=== PATIENT | female | born 1940 | race Caucasian/White ===

== ENCOUNTER 2017-09-20 08:21 | Day surgery (SDC) | payer MEDICARE, OTHER ==
[~2017-09-20 08:21] MED LIST: ACYC400 PO; ANTIBIOTIC; CEPH500 PO; ENOX40I SC; NEUPOGEN300 MCG/0. SC; [UNRECOGNIZED DRUG - CODE] SC
[2017-09-20] MEDS ORDERED: ALLO100 PO (13:32)
== END 2017-09-20 17:38 | disposition home or self-care (01) ==
LOC: ATC 08:21
DX: C91.00 Acute lymphoblastic leukemia not having achieved remission (principal)
CPT/HCPCS: 36415; 36430; 86850; 86900; 86901; 86923; J7050; P9040

== ENCOUNTER → 2017-09-28 | Outpatient (CLI) | payer MEDICARE, OTHER ==
[~2017-09-28] MED LIST changes: +ALLO100 PO; +LEVFLO500 PO
[2017-09-28 14:38] LABS: Hematocrit 26.1 % (33.0-51.0); Hemoglobin 8.6 g/dL (11.5-16.0); Mean Corpuscular HGB 31.2 pg (26.0-34.0); Mean Corpuscular Volume 95 fL (80-100); RDW Coefficient Variation 19.4 % (11.7-14.2); RDW Standard Deviation 59.9 fL (35.1-46.3); Red Blood Cell Count 2.76 M/mm3 (3.80-5.20)
[2017-09-28 14:41] LABS: White Blood Cell Count 90.13 K/mm3 (4.00-11.30)
[2017-09-28 14:42] LABS: Platelet Count 14 K/mm3 (150-400)
[2017-09-28 17:28] LABS: BASOPHILS PERCENT MAN 0 % (0-2); BLASTS PERCENT MAN 35 % (0-0); EOSINOPHILS PERCENT MAN 0 % (0-6); LYMPHOCYTES ABSOLUTE MAN 8.11 K/mm3 (0.84-5.20); LYMPHOCYTES PERCENT MAN 9 % (21-46); MONOCYTES PERCENT MAN 4 % (4-13); SEG NEUTROPHILS PERCENT MAN 3 % (41-73); TOTAL CELLS COUNTED 100
[2017-09-28 17:29] LABS: OTHER CELL PERCENT MAN 49 % (0-0)
== END ==
LOC: LAB 14:21
PROVIDERS: Internal Medicine Hematology & Oncology
DX: Z13.0 Encounter for screening for diseases of the blood and blood-forming organs and certain disorders involving the immune mechanism (principal)
CPT/HCPCS: 85025

== ENCOUNTER 2017-09-30 16:14 | Emergency (ER) | payer MEDICARE, OTHER ==
[~2017-09-30] VITALS: Ht 167.6 cm; Wt 59.0 kg
[~2017-09-30 16:14] MED LIST changes: -LEVFLO500 PO
[2017-09-30 16:59] LABS: BASOPHILS ABSOLUTE AUTO 0.63 K/mm3 (0.00-0.23); BASOPHILS PERCENT AUTO 1 % (0-2); EOSINOPHILS ABSOLUTE AUTO 0.02 K/mm3 (0.00-0.68); EOSINOPHILS PERCENT AUTO 0 % (0-6); Hematocrit 25.2 % (33.0-51.0); Hemoglobin 8.4 g/dL (11.5-16.0); Mean Corpuscular HGB Conc 33.3 g/dL (31.5-36.5); Mean Corpuscular Volume 93 fL (80-100); NRBC ABSOLUTE 0.15 K/mm3 (0.00-0.02); NRBC Auto 0.1 /100 WBC (0.0-0.2); RDW Coefficient Variation 19.5 % (11.7-14.2); Red Blood Cell Count 2.71 M/mm3 (3.80-5.20)
[2017-09-30 17:05] LABS: Platelet Count 14 K/mm3 (150-400); White Blood Cell Count 117.22 K/mm3 (4.00-11.30)
[2017-09-30 17:19] LABS: Alanine Aminotransfer (ALT/SGP 15 U/L (12-78); Albumin, Blood 3.1 g/dL (3.4-5.0); Albumin/Globulin Ratio 0.9 (0.8-1.8); Alk Phos 70 U/L (50-136); Anion Gap 8 mmol/L (6-16); Aspartate Aminotrans (AST/SGOT 26 U/L (12-37); Bilirubin, Total 0.4 mg/dL (0.1-1.0); Blood Urea Nitrogen 16 mg/dL (8-24); Bun/Creatinine Ratio 25.2 (12.0-20.0); CO2, Blood 25 mmol/L (21-32); Calcium, Blood 9.3 mg/dL (8.5-10.1); Chloride, Blood 101 mmol/L (98-108); Creatinine, Blood 0.64 mg/dL (0.40-1.00); Globulin, Blood 3.6 g/dL (2.2-4.0); Glomerular Filtration Rate >60 (60-); Glucose, Blood 125 mg/dL (70-99); Potassium, Blood 4.1 mmol/L (3.5-5.5); Sodium, Blood 134 mmol/L (136-145); Total Protein, Blood 6.7 g/dL (6.4-8.2)
[2017-09-30 17:47] LABS: BASOPHILS PERCENT MAN 0 % (0-2); EOSINOPHILS PERCENT MAN 0 % (0-6); LYMPHOCYTES ABSOLUTE MAN 97.29 K/mm3 (0.84-5.20); LYMPHOCYTES PERCENT MAN 83 % (21-46); MONOCYTES ABSOLUTE MAN 1.17 K/mm3 (0.16-1.47); MONOCYTES PERCENT MAN 1 % (4-13); OTHER CELL PERCENT MAN 16 % (0-0); TOTAL CELLS COUNTED 100
[2017-09-30 17:49] LABS: SEG NEUTROPHILS PERCENT MAN 0 % (41-73)
[2017-09-30] MEDS ORDERED: LEVFLO500 PO (18:33)
== END 2017-09-30 21:30 | disposition home or self-care (01) ==
LOC: ER 16:14
PROVIDERS: Physician Assistant
DX: C91.00 Acute lymphoblastic leukemia not having achieved remission (principal); D64.9 Anemia, unspecified; M79.81 Nontraumatic hematoma of soft tissue; D69.6 Thrombocytopenia, unspecified; Z79.899 Other long term (current) drug therapy; Z90.710 Acquired absence of both cervix and uterus; Z87.891 Personal history of nicotine dependence; Z87.442 Personal history of urinary calculi
CPT/HCPCS: 36430; 80053; 85025; 86850; 86900; 86901; 86923; 93005; 93010; 93971; 99284; J7030; P9016; P9035

== ENCOUNTER 2017-10-04 00:52 | Day surgery (SDC) | payer MEDICARE, OTHER ==
[~2017-10-04 00:52] MED LIST changes: +LEVFLO500 PO
[2017-10-04 11:20] LABS: Hematocrit 24.4 % (33.0-51.0); Hemoglobin 8.1 g/dL (11.5-16.0); Mean Corpuscular HGB 30.6 pg (26.0-34.0); Mean Corpuscular HGB Conc 33.2 g/dL (31.5-36.5); Mean Corpuscular Volume 92 fL (80-100); Mean Platelet Volume 12.3 fL (9.1-12.4); NRBC ABSOLUTE 0.11 K/mm3 (0.00-0.02); NRBC Auto 0.1 /100 WBC (0.0-0.2); RDW Coefficient Variation 18.6 % (11.7-14.2); RDW Standard Deviation 55.3 fL (35.1-46.3); Red Blood Cell Count 2.65 M/mm3 (3.80-5.20)
[2017-10-04 11:26] LABS: White Blood Cell Count 172.25 K/mm3 (4.00-11.30)
[2017-10-04 11:27] LABS: Platelet Count 15 K/mm3 (150-400)
[2017-10-04 12:37] LABS: BASOPHILS PERCENT MAN 0 % (0-2); BLASTS PERCENT MAN 30 % (0-0); EOSINOPHILS PERCENT MAN 0 % (0-6); LYMPHOCYTES ABSOLUTE MAN 34.45 K/mm3 (0.84-5.20); LYMPHOCYTES PERCENT MAN 20 % (21-46); MONOCYTES ABSOLUTE MAN 58.56 K/mm3 (0.16-1.47); MONOCYTES PERCENT MAN 34 % (4-13); NEUTROPHILS ABSOLUTE MAN 5.16 K/mm3 (1.96-9.15); OTHER CELL PERCENT MAN 12 % (0-0); PROMYELOCYTE ABSOLUTE MAN 1.72 K/mm3 (0.00-0.00); PROMYELOCYTE PERCENT MAN 1 % (0-0); SEG NEUTROPHILS PERCENT MAN 3 % (41-73); TOTAL CELLS COUNTED 100
== END 2017-10-04 10:57 | disposition home or self-care (01) ==
LOC: ATC 00:52
PROVIDERS: Internal Medicine Hematology & Oncology
DX: Z45.2 Encounter for adjustment and management of vascular access device (principal); C91.00 Acute lymphoblastic leukemia not having achieved remission
CPT/HCPCS: 36592; 85025

== ENCOUNTER 2017-10-05 12:10 | Day surgery (SDC) | payer MEDICARE, OTHER | END 2017-10-05 19:30 | disposition home or self-care (01) | LOC: TRN 12:10 | PROC: 30233N1 Transfusion of Nonautologous Red Blood Cells into Peripheral Vein, Percutaneous Approach (ICD-10-PCS; principal; 2017-10-05) | DX: C91.01 Acute lymphoblastic leukemia, in remission (principal) | CPT/HCPCS: 36430; 86850; 86900; 86901; 86923; J7030; P9035; P9040; Q0163 ==

== ENCOUNTER 2017-10-09 11:32 | Day surgery (SDC) | payer MEDICARE, OTHER | END 2017-10-09 18:42 | disposition home or self-care (01) | LOC: ATC 11:32 | PROC: 30233N1 Transfusion of Nonautologous Red Blood Cells into Peripheral Vein, Percutaneous Approach (ICD-10-PCS; principal; 2017-10-09) | DX: C91.01 Acute lymphoblastic leukemia, in remission (principal) | CPT/HCPCS: 36415; 36430; 86850; 86900; 86901; 86923; J7030; P9035; P9040; Q0163 ==